=== PATIENT | female | born 1980 | race Caucasian/White ===

== ENCOUNTER → 2021-04-03 | Emergency (ER) | payer OTHER ==
[~2021-04-03] VITALS: Ht 160 cm; Wt 81.6 kg
[~2021-04-03] MED LIST: KETO10TA2 PO
== END | disposition home or self-care (01) ==
LOC: ER 00:57
DX: M94.0 Chondrocostal junction syndrome [Tietze] (principal); R07.89 Other chest pain

== ENCOUNTER 2021-08-07 16:39 | Emergency (ER) | payer OTHER ==
[~2021-08-07] VITALS: Ht 162.6 cm; Wt 82.6 kg
[2021-08-07] MEDS ORDERED: CIPRO500 MG PO (20:56)
== END 2021-08-07 21:03 | disposition home or self-care (01) ==
LOC: ER 16:39
DX: R10.13 Epigastric pain (principal); K82.4 Cholesterolosis of gallbladder; Z88.8 Allergy status to other drugs, medicaments and biological substances